=== PATIENT | male | born 1990 | race Caucasian/White ===

== ENCOUNTER 2016-12-24 05:35 | Emergency (ER) | payer MEDICAID, OTHER ==
[~2016-12-24] VITALS: Ht 172.7 cm; Wt 67.5 kg
[2016-12-24 05:41] VITALS: Ht 172.7 cm; Wt 67.5 kg
[2016-12-24] MEDS ORDERED: LIDOCAINE 1% (MDV) 20 ML INJ ONE (06:15)
[2016-12-24 07:00] VITALS: RESP 20
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
[2016-12-24] MEDS ORDERED: KETOROLAC 15 MG INJ IM STA (07:31)
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
[2016-12-24] MEDS ORDERED: BACITRACIN 0.9 GM OINT TOP ONE (08:00)
[2016-12-24 08:59] VITALS: BP 124/70; PULSE 78; TEMP 98
== END 2016-12-24 09:05 | disposition home or self-care (01) ==
LOC: E/R 05:35
DX: S01.01XA Laceration without foreign body of scalp, initial encounter (principal); R40.2252 Coma scale, best verbal response, oriented, at arrival to emergency department; R40.2142 Coma scale, eyes open, spontaneous, at arrival to emergency department; R40.2362 Coma scale, best motor response, obeys commands, at arrival to emergency department; Y08.89XA Assault by other specified means, initial encounter
CPT/HCPCS: 12002; 12014; 70450; 70480; 96372; J1885; Z7502; Z7610

== ENCOUNTER 2016-12-29 14:48 | Emergency (ER) | payer MEDICAID ==
[~2016-12-29] VITALS: Ht 160 cm; Wt 67.0 kg
[2016-12-29 14:51] VITALS: Ht 160 cm; Wt 67.0 kg
--- NOTE | 2017-01-01 15:11 | ERD ---
ER Documentation Chief Complaint Date/Time DATE: 01/01/17 TIME: 15:06 Chief Complaint SUTURE REMOVAL RIGHT EYEBROW, LEFT FOREHEAD HPI This is a 26 year old male presenting to ER for suture and staple removal to forehead and scalp. Patient denies any erythema or drainage. No active bleeding. No fevers or chills. No pain. ROS All systems reviewed and are negative except as per history of present illness. Allergies Allergies: Coded Allergies: No Known Drug Allergies (Verified Allergy, Unknown, 12/29/16) PMhx/Soc Medical and Surgical Hx: pt denies Medical Hx, pt denies Surgical Hx History of Surgery: No Anesthesia Reaction: No Hx Neurological Disorder: No Hx Respiratory Disorders: No Hx Cardiac Disorders: No Hx Psychiatric Problems: No Hx Miscellaneous Medical Probl: Yes (SCOLIOSIS) Hx Alcohol Use: Yes Hx Substance Use: Yes (marijuana) Hx Tobacco Use: Yes Smoking Status: Never smoker Physical Exam Vitals Vital Signs Date Time Temp Pulse Resp B/P Pulse Ox O2 Delivery O2 Flow Rate FiO2 12/29/16 14:51 98.2 78 19 107/73 98 Physical Exam Const: Alert, oriented to person, place and time Head: Atraumatic Eyes: Normal Conjunctiva Skin: Sutures and beverley in place and intact to left forehead, left scalp, right eyebrow and right episcopal Neur: Awake and alert Psych: Normal Mood and Affect Procedures/MDM MDM: This is a 26-year-old male presenting to the department for suture and staple removal. Suture and staple Removal by me: Verbal consent obtained from patient by me. Sutures removed with tweezers and scissors without incident. 9 sutures removed from left upper forehead/scalp, 4 sutures removed from right eyebrow and 4 beverley removed from right episcopal. Wound shows no evidence of infection, foreign body, neurologic injury, vascular injury, open joint or tendon laceration. Patient to follow up PRN. Return to ED for any high fever, chest pain, difficulty breathing, shortness breath, wheezing, vomiting, diarrhea, abdominal pain or any new or worsening symptoms. Patient verbalizes understanding. All questions answered at discharge. Disclaimer: Inadvertent spelling and grammatical errors are likely due to EHR/ dictation software use and do not reflect on the overall quality of patient care. Also, please note that the electronic time recorded on this note does not necessarily reflect the actual time of the patient encounter. Departure Diagnosis: Primary Impression: Encounter for removal of beverley Additional Impression: Encounter for removal of sutures Condition: Stable Patient Instructions: Staple Removal, No Complication, Suture Removal, No Complication Referrals: [facility] YOU HAVE RECEIVED A MEDICAL SCREENING EXAM AND THE RESULTS INDICATE THAT YOU DO NOT HAVE A CONDITION THAT REQUIRES URGENT TREATMENT IN THE EMERGENCY DEPARTMENT. FURTHER EVALUATION AND TREATMENT OF YOUR CONDITION CAN WAIT UNTIL YOU ARE SEEN IN YOUR DOCTORS OFFICE WITHIN THE NEXT 1-2 DAYS. IT IS YOUR RESPONSIBILITY TO MAKE AN APPOINTMENT FOR FOLOW-UP CARE. IF YOU HAVE A PRIMARY DOCTOR --you should call your primary doctor and schedule an appointment IF YOU DO NOT HAVE A PRIMARY DOCTOR YOU CAN CALL OUR PHYSICIAN REFERRAL HOTLINE AT IF YOU CAN NOT AFFORD TO SEE A PHYSICIAN YOU CAN CHOSE FROM THE FOLLOWING [facility] [email or web address] [facility] [email or web address] [facility] [address] [facility] [address] [facility] [address] [facility]. [facility]. [address] [facility]. [facility] YOU HAVE RECEIVED A MEDICAL SCREENING EXAM AND THE RESULTS INDICATE THAT YOU DO NOT HAVE A CONDITION THAT REQUIRES URGENT TREATMENT IN THE EMERGENCY DEPARTMENT. FURTHER EVALUATION AND TREATMENT OF YOUR CONDITION CAN WAIT UNTIL YOU ARE SEEN IN YOUR DOCTORS OFFICE WITHIN THE NEXT 1-2 DAYS. IT IS YOUR RESPONSIBILITY TO MAKE AN APPOINTMENT FOR FOLOW-UP CARE. IF YOU HAVE A PRIMARY DOCTOR --you should call your primary doctor and schedule and appointment IF YOU DO NOT HAVE A PRIMARY DOCTOR YOU CAN CALL OUR PHYSICIAN REFERRAL HOTLINE AT . IF YOU CAN NOT AFFORD TO SEE A PHYSICIAN YOU CAN CHOSE FROM THE FOLLOWING [facility] INSTITUTIONS: [facility] [address] [place] [address] [facility] [address] [place] [address] [facility] [address] [address] Additional Instructions: Call your primary care doctor TOMORROW for an appointment during the next 1 WEEK.Tell the community youth secretary that you were referred from this facility.See the doctor sooner or return here if your condition worsens before your appointment time. Return to ED for any high fever, chest pain, difficulty breathing, shortness breath, wheezing, vomiting, diarrhea, abdominal pain or any new or worsening symptoms. . YOVANA HAYES NP Jan 01, 2017 15:11
== END 2016-12-29 16:35 | disposition home or self-care (01) ==
LOC: FTE 14:48
DX: Z48.02 Encounter for removal of sutures (principal); Z87.891 Personal history of nicotine dependence
CPT/HCPCS: 99281

== ENCOUNTER 2017-02-22 01:08 | Emergency (ER) | payer MEDICAID, OTHER ==
[~2017-02-22] VITALS: Ht 170.2 cm; Wt 65.0 kg
[2017-02-22 01:12] VITALS: Ht 170.2 cm; Wt 65.0 kg
[2017-02-22] MEDS ORDERED: morphine 4 MG/ML VIAL IM STA (02:10)
[2017-02-22] MEDS ORDERED: ONDANSETRON (ODT) 4 MG TAB ODT STA (02:10)
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
[2017-02-22] MEDS ORDERED: HYDR-906 PO (02:43)
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
[2017-02-22 03:12] VITALS: BP 118/66; PULSE 81; RESP 20
== END 2017-02-22 03:13 | disposition home or self-care (01) ==
LOC: FTE 01:08
DX: S99.911A Unspecified injury of right ankle, initial encounter (principal); W22.8XXA Striking against or struck by other objects, initial encounter; Y92.9 Unspecified place or not applicable
CPT/HCPCS: 73610; 96372; 99284; J2270